=== PATIENT | male | born 1975 | race African-American/Black ===

== ENCOUNTER → 2022-12-15 | Outpatient (CLI) | payer BC, SELFPAY ==
--- NOTE | 2022-12-15 13:33 | RAD_ITS ---
INDICATION: SOB, chest pain EXAMINATION/TECHNIQUE: X-RAY - XR Chest 2 Views COMPARISON: None. FINDINGS: The lungs are clear. The cardiomediastinal silhouette is unremarkable. No pleural effusion or pneumothorax. No acute osseous abnormalities. RAD/Chest PA and Lateral IMPRESSION: No acute radiographic abnormalities. Electronically Signed: Alfonzo Joyner MD at 17:40 EDT ,
[2022-12-15 14:35] LABS: Hematocrit 43.3 % (40-54); Hemoglobin 14.4 g/dL (13.0-16.5); Mean Corp Hgb Conc 33.3 g/dL (32-36); Mean Corpuscular Hgb 32.3 pg (27.0-32.0); Mean Corpuscular Volume 97.1 fL (80-94); Mean Platelet Vol. 8.9 fl (6.2-12.0); Platelet Count 363 K/mm3 (150-450); RBC Distribution Width SD 50.4 fl (35.1-43.9); Red Blood Count 4.46 M/mm3 (4.6-6.2); White Blood Count 7.8 K/mm3 (4.4-11.0)
[2022-12-15 14:43] LABS: Prothrombin Time (Protime)PT. 13.2 SECONDS (11.7-14.9)
[2022-12-15 14:44] LABS: Partial Thromboplast Time 26.1 Seconds (24.1-36.2)
[2022-12-15 14:54] LABS: Anion Gap 3 (5-15); BUN 20 mg/dL (7-18); Calcium,Total 9.1 mg/dL (8.5-10.1); Chloride 107 mmol/L (98-107); Creatinine, Serum 1.33 mg/dL (0.70-1.30); EST Glomerular Filtration Rate 61 mL/min (>60); Est Glom Filt Rate - Afr Amer 74 mL/min (>60); Glucose 99 mg/dL (74-106); Potassium 4.5 mmol/L (3.5-5.1); Sodium Level 138 mmol/L (136-145)
== END | disposition home or self-care (01) ==
LOC: RAD 13:32
PROVIDERS: Internal Medicine Cardiovascular Disease; Visit Provider Physician Assistant Medical
DX: R07.9 Chest pain, unspecified (principal); I21.19 ST elevation (STEMI) myocardial infarction involving other coronary artery of inferior wall; I25.10 Atherosclerotic heart disease of native coronary artery without angina pectoris; Z95.5 Presence of coronary angioplasty implant and graft; R06.09 Other forms of dyspnea; E78.5 Hyperlipidemia, unspecified; I10 Essential (primary) hypertension
CPT/HCPCS: 36415; 71046; 80048; 85027; 85610; 85730

== ENCOUNTER 2022-12-22 06:42 | Day surgery (SDC) | payer BC, SELFPAY ==
[2022-12-21 07:55] VITALS: BMI 24.8
--- NOTE | 2022-12-22 08:44 | CL.D_ITS ---
Patient Name: SANDY HANSON Study Date: 12/22/2022 Performing: Jm Osuna MD Ht: 71 inches 180.34 cm : 1975 Wt: 178 lbs 80.74 kg Age: 47 Gender: male BSA: 2.01 PROCEDURE(S) PERFORMED [id number])LHC/COR/LV CLINICAL PROFILE AND INDICATIONS Indications: Suspected CAD Heart Failure: None Stress/Imaging Stress/Image Study Performed: No CAD Presentations: Stable angina. CONCLUSIONS Previously placed stent in the left main coronary artery as well as the right coronary artery and noted to be patent. Distal LAD disease present RECOMMENDATIONS Medical therapy DESCRIPTION OF PROCEDURE The patient arrived to the procedure lab. The risks and benefits of the procedure as well as a full description of our services here and current unavailability of surgical backup were fully explained to the patient and/or their significant other prior to the catheterization. The Timeout was completed, verifying the correct patient and procedure. The patient's procedural site was prepped and draped in the usual fashion. Local anesthetic was given subcutaneously to right radial region with Lidocaine 2%. Using a modified Seldinger technique, arterial access was obtained via the right radial artery, a 6Fr sheath was inserted. Left Coronary Artery selective angiography was performed in multiple views using a 5 Fr. 4.0 [place] catheter. Right Coronary Artery selective angiography was then performed in multiple views using a 5 Fr. 4.0 [place] catheter. Left Ventriculography was performed in RIVERA projection using a 5 Fr. Pigtail catheter. LV to AO pullback pressures were then recorded.The arterial sheath was pulled and a TR Band was applied for hemostasis, 13cc of air CORONARY ANGIOGRAPHY DOMINANCE: Right Dominant LEFT HEART ASSESSMENT Left Ventricular Ejection Fraction: by LV Gram 65 % Normal LV wall motion Normal Left Ventricular systolic function LEFT MAIN: Previously placed stent is patent, Mild luminal irregularities LEFT ANTERIOR DESCENDING ARTERY: The proximal and mid segments of the vessel do not appear to have any significant stenosis. Distally at the apex the vessel bifurcates and one of the branches has an 80% stenotic lesion noted. CIRCUMFLEX ARTERY: Mild luminal irregularities RIGHT CORONARY ARTERY: No significant disease noted MID RCA: Previously placed stent is patent COMPLICATIONS No Complications PROCEDURE MEDICATIONS Fentanyl 50 mcg IV Versed 1 mg IV Versed 1 mg IV Oxygen: 2 L/min via nasal cannula Heparin given IA 12/22/2022 08:05:41 Verapamil 2.5mg, Ntg 100mcgs, 3000 units of Heparin given IA 12/22/2022 08:05:41 SUMMARY OF HEMODYNAMIC DATA Time AIR REST ECG 07:03:39 Art 141/79 (105) 07:55:42 AO 121/84 (100) SA 08:07:30 LV 122/5, 18 08:15:31 LV 121/6, 18 08:15:39 LV 116/6, 24 08:16:36 LVp 118/5, 24 08:16:40 AOp 130/76 (101) 08:16:47 Signed By Jm Osuna MD On 12/22/2022 08:43:39 Jm Osuna MD
== END 2022-12-22 09:50 | disposition home or self-care (01) ==
LOC: CLSP 06:45
PROVIDERS: Referring Provider Internal Medicine Cardiovascular Disease; Visit Provider Internal Medicine Cardiovascular Disease
DX: I25.119 Atherosclerotic heart disease of native coronary artery with unspecified angina pectoris (principal); I10 Essential (primary) hypertension; E78.5 Hyperlipidemia, unspecified; F17.200 Nicotine dependence, unspecified, uncomplicated; I25.2 Old myocardial infarction; Z79.82 Long term (current) use of aspirin; Z79.899 Other long term (current) drug therapy; Z95.5 Presence of coronary angioplasty implant and graft
CPT/HCPCS: 93458; 99152; 99153; J7040; Q9967; C1769; C1894

== ENCOUNTER → 2023-01-31 | Outpatient (CLI) | payer BC, SELFPAY ==
[2023-01-31 17:17] LABS: ALB/GLOB Ratio 1.2 RATIO (0.9-2.4); AST(SGOT) 30 U/L (15-37); Alanine Aminotransfer ALT/SGPT 37 U/L (16-61); Albumin, Serum 3.8 g/dL (3.2-5.0); Alkaline Phosphatase 107 U/L (45-117); Anion Gap 3 (5-15); BUN 17 mg/dL (7-18); BUN/Creat Ratio 13.8 RATIO (10-20); Calcium,Total 9.3 mg/dL (8.5-10.1); Chloride 110 mmol/L (98-107); Creatinine, Serum 1.23 mg/dL (0.70-1.30); EST Glomerular Filtration Rate 67 mL/min (>60); Est Glom Filt Rate - Afr Amer 81 mL/min (>60); Globulin 3.3 g/dL (2.2-4.2); Glucose 94 mg/dL (74-106); Protein, Total 7.1 g/dL (6.4-8.2); Sodium Level 139 mmol/L (136-145)
== END | disposition home or self-care (01) ==
LOC: BIMLAB 15:58
PROVIDERS: Visit Provider Internal Medicine
DX: R10.13 Epigastric pain (principal)
CPT/HCPCS: 36415; 80053

== ENCOUNTER 2023-03-19 10:33 | Observation (INO) | payer BC, SELFPAY ==
[2023-03-19 09:54] VITALS: BP 156/96; PULSE 61; RESP 18; TEMP 36.7; O2SAT 98
[2023-03-19 10:26] VITALS: BMI 22.6
[2023-03-19 11:07] LABS: Troponin-I HS 5 pg/mL (3.0-78.0)
[2023-03-19 13:32] VITALS: BP 134/77; PULSE 65; RESP 18; TEMP 36.6; O2SAT 100
--- NOTE | 2023-03-19 15:31 | STRESSREP_ITS ---
Stress Test Report Exercise myocardial perfusion stress test. 47-year-old male with a history of coronary artery disease Stress protocol: Resting EKG demonstrates sinus bradycardia with a rate of 52 bpm resting blood pressure is 160/84 mmHg. The patient exercised according to the regular Karson protocol for a total duration of 9 minutes and 46 seconds attaining a maximum heart rate of 146 bpm which was 84% of maximum predicted heart rate; the maximum workload was 12.6 metabolic equivalents. At rest there were no ST or T wave changes noted to suggest ischemia and at peak exercise upsloping ST changes only were noted which did not meet the criteria for ischemia. No clinical angina was noted the test was terminated due to the target heart rate being ac hieved/fatigue. The peak blood pressure was 168/92 mmHg. Rate-pressure product was 22,300. Myocardial perfusion protocol. 11.4 mCi of technetium 99m sestamibi was injected at rest. The patient exe rcised according to regular Karson protocol for total duration of 9 minutes and 46 seconds and at peak exercise 33.9 mCi of technetium 99m sestamibi was injected stress images were obtained stress and rest images were reconstructed in comparing the short axis vertical long and horizontal long axis. Gated images were also obtained. Perfusion SPECT analysis: Review of the stress images demonstrate normal uptake of tracer noted in all areas of the myocardium. The resting images similarly demonstrate normal uptake of tracer noted in all areas of the myocardium. No areas of reversibility are noted to suggest ischemia no previous infarct was noted. Gated SPECT analysis: The gated ejection fraction is 65%. Conclusion: Normal exercise myocardial perfusion stress test at a high workload Preserved ejection fraction.
--- NOTE | 2023-03-19 17:04 | PCM.DC ---
Discharge Instructions Diet Discharge Diet: No restrictions Activity Discharge Activity: Return to Normal Activity Return to work on:: 03/22/23 Weight Bearing Status: Full weight bearing Follow Up Care Test Results: Test results from this visit will be discussed in further detail at your follow-up appointment, if applicable. Discharge Plan Admission Admit Date/Time: 03/19/23 10:33 Primary Reason for Your Visit: chest pain Attending Provider: Blaze Rowley Primary Care Provider: Pati Verdin Consulting Providers: Chadd Quarles Discharge Orders/Prescriptions Prescriptions: No Action nitroglycerin [Nitrostat] 0.4 mg tablet, sublingual 0.4 mg sublingual Q5-15M PRN (Reason: chest pain) Qty: 25 3RF Rx Instructions: do not exceed 3 doses per episode (DME) [facility] See Rx Instructions .Route Qty: 2 0RF Rx Instructions: As directed atorvastatin 40 mg tablet 40 mg PO DAILY Qty: 90 3RF carvedilol 6.25 mg tablet 6.25 mg PO BID Qty: 180 3RF Rx Instructions: must administer with a meal/food isosorbide mononitrate 30 mg tablet extended release 24 hr 30 mg PO DAILY Qty: 90 3RF losartan 25 mg tablet 25 mg PO DAILY Qty: 90 3RF pantoprazole [Protonix] 40 mg tablet,delayed release (DR/EC) 40 mg PO DAILY Qty: 90 3RF prasugrel 10 mg tablet 10 mg PO DAILY Qty: 90 3RF aspirin [Adult Aspirin Regimen] 81 mg tablet,delayed release (DR/EC) 81 mg PO DAILY Qty: 90 3RF nicotine 14 mg/24 hr patch 24 hour 1 patch transdermal DAILY Qty: 28 0RF nicotine (polacrilex) 2 mg gum 2 mg buccal Q2H PRN (Reason: nicotine cravings) Qty: 100 0RF Referrals / Follow Up: Pati Verdin MD [Primary Care Provider] - See Referral Note (At scheduled appointment time) Jm Osuna MD [Med Staff - Active Staff] - See Referral Note (At scheduled appointment time) Disposition Disposition (needs filled in before D/C Order can be placed): Home, Self Care
--- NOTE | 2023-03-19 17:11 | PCM.DC.SUM ---
Providers Date of Admission: 03/19/23 Date of Discharge: 03/19/23 Primary Care Physician: Dr. Pati Verdin MD Reason For Visit: CHEST PAIN Diagnosis Discharge Diagnosis (1) Chest pain: Status: Acute Code(s): R07.9 - Chest pain, unspecified Plan 1. Musculoskeletal chest pain #2 coronary artery disease #3 essential hypertension #4 hyperlipidemia Medications at Discharge Home Medications nitroglycerin 0.4 mg sublingual tablet (Nitrostat) 0.4 mg sublingual Q5-15M PRN chest pain #25 tabs 12/15/22 arm brace #2 ea 01/31/23 aspirin 81 mg tablet,delayed release (Adult Aspirin Regimen) 81 mg PO DAILY #90 tabs 02/02/23 atorvastatin 40 mg tablet 40 mg PO DAILY #90 tabs 02/02/23 carvedilol 6.25 mg tablet 6.25 mg PO BID #180 tabs 02/02/23 isosorbide mononitrate 30 mg tablet,extended release 24 hr 30 mg PO DAILY #90 tabs 02/02/23 losartan 25 mg tablet 25 mg PO DAILY #90 tabs 02/02/23 pantoprazole 40 mg tablet,delayed release (Protonix) 40 mg PO DAILY #90 tabs 02/02/23 prasugrel 10 mg tablet 10 mg PO DAILY #90 tabs 02/02/23 nicotine (polacrilex) 2 mg gum 2 mg buccal Q2H PRN nicotine cravings #100 ea 02/20/23 nicotine 14 mg/24 hr daily transdermal patch 1 patch transdermal DAILY #28 ea 02/20/23 Hospital Course Operations None Procedures Nuclear stress test Summary of Care Provided Minutes Spent on Discharge: 30 Hospital Course: This 47-year-old black male wasDirectly admitted to PCU as a transfer from [facility] where he went for evaluation of chest pain which occurred early on the morning of 03/19/2023. Patient's cardiac enzymes were unremarkable, EKG did not show evidence of an ischemic pattern. Patient underwent a treadmill nuclear stress test which was negative for reversible ischemia. In the afternoon of 03/19/2023, patient was seen and examined: On examination he appeared in good health and spirits. Vital signs as documented. Skin warm and dry and without overt rashes. Neck without JVD, neck was supple, trachea midline, thyroid was normal. Lungs clear bilaterally, normal air movement was noted. Heart exam notable for regular rhythm, normal sounds and absence of murmurs, rubs or gallops. Abdomen unremarkable and without evidence of organomegaly, masses, or abdominal aortic enlargement. Bowel sounds are present, abdomen is not distended. Extremities nonedematous, no cyanosis was noted, no clubbing was noted. Neuro: Cranial nerves II through XII are grossly intact, no focal motor deficits were noted, sensation to light touch and pinprick intact, motor exam 5/5 throughout. Psych: Patient is alert and oriented x3, he does not appear anxious or depressed, he does not appear agitated. Patient appears stable for discharge home on 03/19/2023, the exact etiology of his chest pain was felt to be musculoskeletal in nature. Patient was to remain on his home medications, he was to follow-up with cardiology as an outpatient. Weight / BMI Weight Weight: 73.6 kg Body Mass Index (BMI) 22.6 ABG / Lab / Microbiology Data Laboratory: Laboratory Results - last 24 hr 03/19/23 10:42: Troponin I High Sens 5 D/C Instructions Discharge Diet: No restrictions Return to work on: 03/22/23 Weight Bearing Status: Full weight bearing Meaningful Use Info Meaningful Use Diagnoses (Choose all that apply): None applicable Discharge Plan Admission Admit Date/Time: 03/19/23 10:33 Primary Reason for Your Visit: chest pain Attending Provider: Blaze Rowley Primary Care Provider: Pati Verdin Consulting Providers: Chadd Quarles Discharge Orders/Prescriptions Prescriptions: Continued nitroglycerin [Nitrostat] 0.4 mg tablet, sublingual 0.4 mg sublingual Q5-15M PRN (Reason: chest pain) Qty: 25 3RF Rx Instructions: do not exceed 3 doses per episode (DME) [place] [facility] [place] Rx Instructions .Route Qty: 2 0RF Rx Instructions: As directed atorvastatin 40 mg tablet 40 mg PO DAILY Qty: 90 3RF carvedilol 6.25 mg tablet 6.25 mg PO BID Qty: 180 3RF Rx Instructions: must administer with a meal/food isosorbide mononitrate 30 mg tablet extended release 24 hr 30 mg PO DAILY Qty: 90 3RF losartan 25 mg tablet 25 mg PO DAILY Qty: 90 3RF pantoprazole [Protonix] 40 mg tablet,delayed release (DR/EC) 40 mg PO DAILY Qty: 90 3RF prasugrel 10 mg tablet 10 mg PO DAILY Qty: 90 3RF aspirin [Adult Aspirin Regimen] 81 mg tablet,delayed release (DR/EC) 81 mg PO DAILY Qty: 90 3RF nicotine 14 mg/24 hr patch 24 hour 1 patch transdermal DAILY Qty: 28 0RF nicotine (polacrilex) 2 mg gum 2 mg buccal Q2H PRN (Reason: nicotine cravings) Qty: 100 0RF Referrals / Follow Up: Pati Verdin MD [Primary Care Provider] - See Referral Note (At scheduled appointment time) Jm Osuna MD [Med Staff - Active Staff] - See Referral Note (At scheduled appointment time) Disposition Disposition (needs filled in before D/C Order can be placed): Home, Self Care
[2023-03-19 17:22] VITALS: BP 124/64; PULSE 61; RESP 18; TEMP 36.7; O2SAT 100
--- NOTE | 2023-03-19 17:36 | NURSING ---
patient discharged home per orders
--- NOTE | 2023-03-19 19:35 | HP.PCM.HOS_ITS ---
HPI - General General Date of Admission: 03/19/23 Date of Service: 03/19/23 Chief Complaint: Chest pain HPI Narrative SANDY HANSON, is a 47 M who presents as a direct transfer from [facility] ER where he was evaluated for a complaint of chest pain, it awoke him from sleep early in the morning of 03/19/2023, it lasted for few minutes then went away, he described the discomfort as a squeezing sensation, he then went to work and he had the chest discomfort occur again and it lasted for few minutes and resolved. It did not radiate into his arm or neck, it was not accompanied by nausea or vomiting. Evaluation at [facility] ER included an EKG which showed a normal sinus rhythm without evidence of ischemia, patient's cardiac enzymes were unremarkable. The night hospitalist was contacted for transfer of the patient from the ER directly to PCU and this was approved. Patient has a previous history of a cardiac catheterization and stent placement in September 2022. He has been compliant with his outpatient medi cations. Upon examination of the patient today on PCU, he did not complain of any chest pain or shortness of breath. Cardiology had been contacted early this morning and requested the patient be set up for a nuclear stress test. Patient will have his troponin rechecked, if it remains negative he will undergo nuclear stress test today. [facility] Medical History (Updated 01/31/23 @ 16:[address] Pati Verdin MD) Atherosclerosis of coronary artery of [place] heart without angina pectoris Essential hypertension Hearing problem History of left heart catheterization Hyperlipidemia ST elevation myocardial infarction (STEMI) of inferior wall Tobacco use disorder Home Medications nitroglycerin 0.4 mg sublingual tablet (Nitrostat) 0.4 mg sublingual Q5-15M PRN chest pain #25 tabs 12/15/22 [Rx Last Taken Unknown] arm brace #2 ea 01/31/23 [Rx Last Taken Unknown] aspirin 81 mg tablet,delayed release (Adult Aspirin Regimen) 81 mg PO DAILY #90 tabs 02/02/23 [Rx Last Taken Unknown] atorvastatin 40 mg tablet 40 mg PO DAILY #90 tabs 02/02/23 [Rx Last Taken Unknown] carvedilol 6.25 mg tablet 6.25 mg PO BID #180 tabs 02/02/23 [Rx Last Taken Unknown] isosorbide mononitrate 30 mg tablet,extended release 24 hr 30 mg PO DAILY #90 tabs 02/02/23 [Rx Last Taken Unknown] losartan 25 mg tablet 25 mg PO DAILY #90 tabs 02/02/23 [Rx Last Taken Unknown] pantoprazole 40 mg tablet,delayed release (Protonix) 40 mg PO DAILY #90 tabs 02/02/23 [Rx Last Taken Unknown] prasugrel 10 mg tablet 10 mg PO DAILY #90 tabs 02/02/23 [Rx Last Taken Unknown] nicotine (polacrilex) 2 mg gum 2 mg buccal Q2H PRN nicotine cravings #100 ea 02/20/23 [Rx Last Taken Unknown] nicotine 14 mg/24 hr daily transdermal patch 1 patch transdermal DAILY #28 ea 02/20/23 [Rx Last Taken Unknown] Allergy/AdvReac Type Severity Reaction Status Date / Time No Known Allergies Allergy Unverified 12/15/22 13:06 Family History (Updated 01/31/23 @ 15:[address] Pati Verdin MD) Mother Leukemia Grandfather Diabetes Uncle Cancer Other Myocardial infarction Surgical History (Updated 01/31/23 @ 09:[address] Pati Verdin MD) History of coronary artery stent placement (09/29/22) History of repair of ACL History of right and left heart catheterization (09/29/22) Social History (Updated 01/31/23 @ 15:[address] Pati Verdin MD) household members: other details: friend current occupational status: employed current occupation: builds [employer] Smoking Status: Current every day smoker tobacco type: cigarettes Electronic Cigarette Use: not used quit status: considering quitting alcohol intake: current alcohol intake frequency: a few times a week substance use type: does not use caffeine: Yes Type: carbonated beverages Number of servings: 4 and coffee Number of servings: 2 what type of physical activity do you participate in: walking do you feel safe at home: Yes ROS Constitutional Constitutional: Denies anorexia, change in weight, chills, fatigue, fever(s), night sweats or weakness Eyes Eyes: Denies blurry vision, change in vision, discharge from eye(s) or eye pain Cardiovascular Cardiovascular: Reports chest pain; Denies claudication, edema, lightheadedness, palpitations or rapid heart rate Respiratory/Chest Respiratory/Chest: Denies cough, dyspnea, hemoptysis, productive cough, shortness of breath at rest or shortness of breath with exertion Gastrointestinal Gastrointestinal: Denies abdominal pain, constipation, diarrhea, hematemesis, hematochezia, melena, nausea or vomiting Genitourinary Genitourinary: Denies dysuria, hematuria, urinary frequency, urinary hesitancy, urinary incontinence or urinary urgency Musculoskeletal Musculoskeletal: Denies back pain, joint pain, joint stiffness, joint swelling, myalgias or neck pain Neurologic Neurologic: Denies abnormal gait, abnormal speech, confusion, disequilibrium, dizziness, focal weakness, headache(s), loss of vision, numbness, other visual disturbances, paresthesias, syncope or tingling Psychiatric Psychiatric: Denies anxiety, cognitive impairment, depression, irritability, mood swings or suicidal ideation Endocrine Endocrinology: Denies change in body appearance, cold intolerance, excessive sweating, heat intolerance, polydipsia or polyuria Hematologic/Lymphatic Hematologic/Lymphatic: Denies none, anemia, easy bleeding, easy bruising or lymphadenopathy Allergic/Immunologic Allergic/Immunologic: Denies rhinitis, urticaria, eczemia or asthma Vital Signs Vital Signs Vital Signs: 03/19/23 09:54 03/19/23 10:00 03/19/23 13:32 Temperature 98.0 F 97.9 F Temperature Source Oral Oral Pulse Rate 61 65 Respiratory Rate 18 18 Respiratory Effort Normal Non-Labored Respiratory Depth Normal Respiratory Pattern Normal Blood Pressure 134/77 H Blood Pressure [2nd BP] 156/96 H Blood Pressure Mean 96 Blood Pressure Mean [2nd BP] 116 Blood Pressure Source Blood Pressure Source [2nd BP] Monitor Blood Pressure Position Blood Pressure Position [2nd BP] Semi-Fowlers Blood Pressure Location Blood Pressure Location [2nd BP] Left Arm Pulse Ox 98 100 Oxygen Delivery Method Room Air Room Air 03/19/23 14:00 03/19/23 17:22 Temperature 98.0 F Temperature Source Oral Pulse Rate 61 Respiratory Rate 18 Respiratory Effort Normal Non-Labored Respiratory Depth Normal Respiratory Pattern Normal Blood Pressure 124/64 H Blood Pressure [2nd BP] Blood Pressure Mean 84 Blood Pressure Mean [2nd BP] Blood Pressure Source Monitor Blood Pressure Source [2nd BP] Blood Pressure Position Semi-Fowlers Blood Pressure Position [2nd BP] Blood Pressure Location Right Arm Blood Pressure Location [2nd BP] Pulse Ox 100 Oxygen Delivery Method Room Air Room Air Weight Weight: 73.6 kg Body Mass Index (BMI) 22.6 Physical Exam Const alert, oriented x3, no apparent distress and healthy appearing General Appearance: cooperative, well kempt and well developed Orientation / Consciousness: awake, oriented to person, oriented to place and oriented to time HEENT normocephalic and moist oral mucous membranes Eyes PERRL, EOMs intact bilaterally and conjunctivae normal Neck supple, no JVD, thyroid normal and no carotid bruits General: trachea midline Resp normal respiratory effort and clear to auscultation bilaterally Auscultation: Negative for rales, rhonchi or wheezes Cardio regular rate, regular rhythm, no murmurs, no rub and no gallops GI normal to inspection, nondistended, normoactive bowel sounds, soft to palpation, non-tender and non-distended Extremity no clubbing, cyanosis or edema Skin no rashes or lesions noted General Skin Exam: no breakdown Neuro oriented x3, CN's II-XII intact bilaterally, no focal motor deficits and no sensory deficits noted Sensorium / Orientation: awake and alert Speech: speech normal Psych affect normal Results Lab / Micro Data Labs: Laboratory Results - last 24 hr 03/19/23 10:42: Troponin I High Sens 5 Assessment & Plan Assessment/Plan (1) Chest pain: PLAN: Plan 1. Chest pain- in a patient with known coronary artery disease, again patient's cardiac enzymes are normal at this time, he was placed in observation status on PCU, he will have a troponin repeated, if this is negative he will undergo nuclear stress test on a treadmill. #2 essential hypertension-patient's medications will be held at this time, if he requires further hospitalization his home medications will be ordered. #3 hyperlipidemia-again if patient remains hospitalized, his home medications will be ordered Total clinical time spent by myself addressing the patient's medical issues, reviewing all of his data, and collaborating with patient's care team: 55 minutes Charges/Coding Visit Charges Inpatient E&M: 76830 Init Hosp L2
== END 2023-03-19 17:35 | disposition home or self-care (01) ==
PROVIDERS: Admitting Provider Internal Medicine; PCP Internal Medicine; Referring Provider Internal Medicine; Visit Provider Internal Medicine
DX: R07.89 Other chest pain (principal); F17.210 Nicotine dependence, cigarettes, uncomplicated; Z79.02 Long term (current) use of antithrombotics/antiplatelets; Z79.82 Long term (current) use of aspirin; I25.10 Atherosclerotic heart disease of native coronary artery without angina pectoris; I10 Essential (primary) hypertension; E78.5 Hyperlipidemia, unspecified; I25.2 Old myocardial infarction; Z79.899 Other long term (current) drug therapy
CPT/HCPCS: 36415; 78452; 84484; 93017; 99221; 99406; A9500; A4216; G0378; G0379

== ENCOUNTER → 2023-05-24 | Outpatient (CLI) | payer BC, SELFPAY ==
[2023-05-24 17:03] LABS: AST(SGOT) 24 U/L (15-37); Alanine Aminotransfer ALT/SGPT 24 U/L (16-61); Albumin, Serum 3.6 g/dL (3.2-5.0); Alkaline Phosphatase 92 U/L (45-117); Cholesterol 172 mg/dL (200); Globulin 3.5 g/dL (2.2-4.2); High Density Lipoprotein 58 mg/dL; Protein, Total 7.1 g/dL (6.4-8.2); Triglycerides 213 mg/dL; Very Low Density Lipoprotein 43 mg/dL (5-40)
== END | disposition home or self-care (01) ==
LOC: LAB 15:57
PROVIDERS: PCP Internal Medicine; Referring Provider Physician Assistant Medical; Visit Provider Physician Assistant Medical
DX: I25.10 Atherosclerotic heart disease of native coronary artery without angina pectoris (principal); I10 Essential (primary) hypertension; E78.5 Hyperlipidemia, unspecified
CPT/HCPCS: 36415; 80061; 80076

== ENCOUNTER → 2023-09-12 | Outpatient (CLI) | payer BC, SELFPAY ==
--- NOTE | 2023-09-12 13:47 | NEURO ---
NCS and/or EMG Patient Report Ordering Doctor: Pati Verdin DATE OF SERVICE: 09/12/23 Lg presents for electrodiagnostic testing of the upper limbs. He reports numbness and tingling in both hands, worse on the right side. Electrodiagnostic findings: Right median motor nerve demonstrates prolonged latency with normal amplitude and reduced conduction velocity. Left ulnar motor nerve demonstrates prolonged distal latency with normal amplitude and reduced conduction velocity. Ulnar motor responses within normal limits bilaterally. Prolonged right median F?wave. Prolonged right ulnar F?wave. Prolonged right median sensory latency at the wrist bilaterally. Needle EMG testing was performed in upper limbs. All muscles tested showed no evidence of denervation with normal motor unit action potentials. Electrodiagnostic impression: This is an abnormal study of the upper limbs 1. Electrodiagnostic findings demonstrate bilateral median mononeuropathy. This consistent with a mild to moderate bilateral carpal tunnel syndrome. Multi Select Codes Neurology Neurology Interp Codes: 59072-27 Musc test done w/n test comp (interp) (2) and 55952-40 Nrv cndj test 9-10 studies (interp)
== END | disposition home or self-care (01) ==
LOC: PSN 08:38
PROVIDERS: PCP Internal Medicine; Referring Provider Internal Medicine; Visit Provider Internal Medicine
DX: R20.0 Anesthesia of skin (principal); R20.2 Paresthesia of skin
CPT/HCPCS: 95886; 95911; 95912

== ENCOUNTER 2025-01-04 10:49 | Emergency (ER) | payer BC, SELFPAY ==
[2025-01-04 10:51] VITALS: BP 137/87; PULSE 64; RESP 18; TEMP 37.2; O2SAT 99; BMI 23.7
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
--- NOTE | 2025-01-04 11:15 | RAD_ITS ---
PROCEDURE: KNEE 4 OR MORE VIEWS 01/04/2025 REASON FOR EXAM: KNEE INJURY TECHNIQUE: 4 view(s) of the right knee COMPARISON: None. FINDINGS: Bones: No acute fracture or aggressive osseous lesion. Prior ACL reconstruction with femoral endo-button. Joints: Normal alignment. Mild degenerative changes. Effusion: No effusion. Soft tissues: Soft tissues are unremarkable. RAD/Knee 4 or More Views IMPRESSION: No acute fracture. Reading Location: [id number]
--- NOTE | 2025-01-04 11:15 | RAD_ITS ---
PROCEDURE: FINGER(S) MIN 2 VIEWS 01/04/2025 REASON FOR EXAM: INJURY TECHNIQUE: 3 view(s) of the right finger (unspecified) COMPARISON: None. FINDINGS: Bones: No acute fracture or aggressive osseous lesions. Joints: Normal alignment. Soft tissues: Soft tissues are unremarkable. RAD/Finger(s) Min 2 Views IMPRESSION: NEGATIVE FINGER SERIES Reading Location: [id number]
[2025-01-04 11:51] VITALS: BP 146/84; PULSE 75; RESP 18; TEMP 36.6; O2SAT 99
== END 2025-01-04 12:01 | disposition home or self-care (01) ==
PROVIDERS: Emergency Provider Emergency Medicine; PCP Internal Medicine; Visit Provider Emergency Medicine
DX: S83.91XA Sprain of unspecified site of right knee, initial encounter (principal); S63.632A Sprain of interphalangeal joint of right middle finger, initial encounter; S00.411A Abrasion of right ear, initial encounter; V86.55XA Driver of 3- or 4- wheeled all-terrain vehicle (ATV) injured in nontraffic accident, initial encounter; I25.10 Atherosclerotic heart disease of native coronary artery without angina pectoris; E78.5 Hyperlipidemia, unspecified; I10 Essential (primary) hypertension; F17.210 Nicotine dependence, cigarettes, uncomplicated; Z79.82 Long term (current) use of aspirin; Z79.899 Other long term (current) drug therapy; I25.2 Old myocardial infarction; Z95.5 Presence of coronary angioplasty implant and graft
CPT/HCPCS: 73140; 73564; 99283